=== PATIENT | male | born 1945 | race Caucasian/White ===

== ENCOUNTER 2019-06-15 09:24 | Day surgery (SDC) | payer MEDICARE, OTHER ==
[~2019-06-15] VITALS: Ht 177 cm; Wt 91.1 kg
[~2019-06-15 09:24] MED LIST: AMOX500 PO; Aspir 8181 MG PO; CIPR500 PO; CLAR500CR PO; ESOM20 PO; GABA300 PO; GLUC500 PO; OMEP20ER PO; SUCR1 PO; TAMS.4ER PO; Voltaren100 GM
== END 2019-06-15 11:52 | disposition home or self-care (01) ==
LOC: ORSCSDS 09:24
PROVIDERS: Surgery
PROC: 0DJD8ZZ Inspection of Lower Intestinal Tract, Via Natural or Artificial Opening Endoscopic (ICD-10-PCS; principal; 2019-06-15 10:45)
DX: R19.5 Other fecal abnormalities (principal); K57.30 Diverticulosis of large intestine without perforation or abscess without bleeding; Z87.891 Personal history of nicotine dependence; E66.9 Obesity, unspecified; Z68.31 Body mass index [BMI] 31.0-31.9, adult; Z79.82 Long term (current) use of aspirin; Z79.899 Other long term (current) drug therapy
CPT/HCPCS: J2704; J7120

== ENCOUNTER → 2020-07-14 | Outpatient (CLI) | payer MEDICARE, OTHER ==
[~2020-07-14] MED LIST changes: +ATOR10 PO
[2020-07-14 10:57] LABS: BASOPHILS ABSOLUTE AUTO 0.06 K/mm3 (0.00-0.23); BASOPHILS PERCENT AUTO 1 % (0-2); EOSINOPHILS ABSOLUTE AUTO 0.05 K/mm3 (0.00-0.68); EOSINOPHILS PERCENT AUTO 1 % (0-6); Hematocrit 47.5 % (37.0-53.0); Hemoglobin 15.6 g/dL (13.5-17.5); IMMATURE GRAN ABSOLUTE AUTO 0.03 K/mm3 (0.00-0.10); IMMATURE GRAN PERCENT AUTO 0 % (0-1); LYMPHOCYTES ABSOLUTE AUTO 1.68 K/mm3 (0.84-5.20); LYMPHOCYTES PERCENT AUTO 23 % (21-46); MONOCYTES ABSOLUTE AUTO 0.68 K/mm3 (0.16-1.47); MONOCYTES PERCENT AUTO 10 % (4-13); Mean Corpuscular HGB 31.4 pg (26.0-34.0); Mean Corpuscular HGB Conc 32.8 g/dL (31.5-36.5); Mean Corpuscular Volume 96 fL (80-100); Mean Platelet Volume 10.9 fL (9.1-12.4); NEUTROPHILS ABSOLUTE AUTO 4.68 K/mm3 (1.96-9.15); NEUTROPHILS PERCENT AUTO 65 % (41-73); Platelet Count 217 K/mm3 (150-400); RDW Coefficient Variation 12.2 % (11.7-14.2); RDW Standard Deviation 42.9 fL (35.1-46.3); Red Blood Cell Count 4.97 M/mm3 (4.30-5.90); White Blood Cell Count 7.18 K/mm3 (4.00-11.30)
[2020-07-14 11:37] LABS: Anion Gap 3 mmol/L (6-16); Blood Urea Nitrogen 16 mg/dL (8-24); CO2, Blood 30 mmol/L (21-32); Calcium, Blood 8.8 mg/dL (8.5-10.1); Chloride, Blood 106 mmol/L (98-108); Creatinine, Blood 0.84 mg/dL (0.60-1.20); Glomerular Filtration Rate >60 (60-); Glucose, Blood 114 mg/dL (70-99); Potassium, Blood 4.1 mmol/L (3.5-5.5); Sodium, Blood 139 mmol/L (136-145)
== END ==
LOC: LAB SHORT 09:10 → OLS 09:10
PROVIDERS: Orthopaedic Surgery
DX: Z01.818 Encounter for other preprocedural examination (principal); S83.232D Complex tear of medial meniscus, current injury, left knee, subsequent encounter
CPT/HCPCS: 36415; 80048; 85025

== ENCOUNTER 2020-07-25 07:19 | Day surgery (SDC) | payer MEDICARE, OTHER ==
[~2020-07-25] VITALS: Ht 177.8 cm; Wt 94.6 kg
--- NOTE | 2020-07-25 08:38 | NUR ---
07/25/20 0837 Cynthia Coates (Maribel PT UPDATED ON DELAY. PT RESTING COMFORTABLY IN ROOM, LIGHTS DIMMED, CALL LIGHT WITHIN REACH. PT DENIES NEEDS AT THIS TIME.
== END 2020-07-25 10:53 | disposition home or self-care (01) ==
LOC: ORSCSDS 07:19
PROVIDERS: Orthopaedic Surgery
PROC: 0SBD4ZZ Excision of Left Knee Joint, Percutaneous Endoscopic Approach (ICD-10-PCS; principal; 2020-07-25 08:30)
DX: S83.232D Complex tear of medial meniscus, current injury, left knee, subsequent encounter (principal); S83.282D Other tear of lateral meniscus, current injury, left knee, subsequent encounter; Z87.891 Personal history of nicotine dependence; Z79.82 Long term (current) use of aspirin; Z79.899 Other long term (current) drug therapy
CPT/HCPCS: J0171; J0690; J1100; J1885; J2250; J2405; J2704; J3010; J7120

== ENCOUNTER → 2022-06-21 | Outpatient (CLI) | payer MEDICARE, OTHER | END | disposition home or self-care (01) | LOC: LAB SHORT 11:59 | DX: L82.1 Other seborrheic keratosis (principal) | CPT/HCPCS: 88305 ==

== ENCOUNTER 2023-03-10 08:11 | Day surgery (SDC) | payer MEDICARE, OTHER ==
[~2023-03-10] VITALS: Ht 177.8 cm; Wt 86.4 kg
[2023-03-10 09:46] VITALS: BP 112/63
== END 2023-03-10 09:56 | disposition home or self-care (01) ==
LOC: ORSCSDS 08:11
PROVIDERS: Ophthalmology
PROC: 08RJ3JZ Replacement of Right Lens with Synthetic Substitute, Percutaneous Approach (ICD-10-PCS; principal; 2023-03-10 09:30)
DX: H25.13 Age-related nuclear cataract, bilateral (principal); H21.81 Floppy iris syndrome; E78.5 Hyperlipidemia, unspecified; K21.9 Gastro-esophageal reflux disease without esophagitis; Z79.899 Other long term (current) drug therapy
CPT/HCPCS: J2001; J2250; J3301; J7040; V2632

== ENCOUNTER 2023-03-17 08:06 | Day surgery (SDC) | payer MEDICARE, OTHER ==
[~2023-03-17] VITALS: Ht 177.8 cm; Wt 86.7 kg
--- NOTE | 2023-03-17 08:54 | NUR ---
03/17/23 0854 Angie Ruiz TETRALILIANAIN PLACED IN LEFT EYE AT 0840. PLEDGET PLACED IN LEFT EYE AT 0841. PATIENT TOLERATED WELL.
[2023-03-17 09:42] VITALS: BP 130/61
== END 2023-03-17 09:56 | disposition home or self-care (01) ==
LOC: ORSCSDS 08:06
PROVIDERS: Ophthalmology
PROC: 08RK3JZ Replacement of Left Lens with Synthetic Substitute, Percutaneous Approach (ICD-10-PCS; principal; 2023-03-17 09:30)
DX: H25.12 Age-related nuclear cataract, left eye (principal); Z96.1 Presence of intraocular lens; H21.81 Floppy iris syndrome; K21.9 Gastro-esophageal reflux disease without esophagitis; Z87.891 Personal history of nicotine dependence; E78.5 Hyperlipidemia, unspecified; Z79.82 Long term (current) use of aspirin; Z79.899 Other long term (current) drug therapy
CPT/HCPCS: J2250; J3010; J3301; J7040; V2632

== ENCOUNTER → 2023-12-12 | Outpatient (CLI) | payer OTHER ==
[~2023-12-12] MED LIST changes: +CEPH500 PO; +GABAPENTIN600 MG PO; +TROSPIUM CHLORI20 M1 PO
[2023-12-12 13:41] LABS: Bun/Creatinine Ratio 15.5 (12.0-20.0); Calcium, Blood 8.7 mg/dL (8.5-10.1); Creatinine, Blood 1.1 mg/dL (0.60-1.20); Potassium, Blood 4.5 mmol/L (3.5-5.5); Uric Acid, Blood 3.8 mg/dL (3.5-7.2)
== END | disposition home or self-care (01) ==
LOC: LAB 13:30 → LAB SHORT 13:30
PROVIDERS: Family Medicine
DX: M10.9 Gout, unspecified (principal)
CPT/HCPCS: 80048; 84550

== ENCOUNTER → 2024-02-14 | Outpatient (CLI) | payer OTHER | END | disposition home or self-care (01) | LOC: LAB SHORT 11:31 → LAB 11:31 | DX: M79.671 Pain in right foot (principal) | CPT/HCPCS: 84550; 85651 ==